=== PATIENT | female | born 1970 | race Caucasian/White ===

== ENCOUNTER 2020-03-17 09:25 | Emergency (ER) | payer BC, SELFPAY ==
[2020-03-17] MEDS ORDERED: BUPIVACAINE 0.5% PF 10 ML VIAL ONE (09:58)
[2020-03-17] MEDS ORDERED: LIDOCAINE 1% MPF 5 ML VIAL ONE (09:58)
[2020-03-17] MEDS ORDERED: TETANUS & DIPHTHERIA TOX,ADULT 0.5 ML VIAL ONE (09:59)
--- NOTE | 2020-03-17 10:47 | RAD REPORT ---
EXAM DESCRIPTION: RAD -Hand Left 3 View - 03/17/2020 10:31 am CLINICAL HISTORY: Left hand pain status post injury FINDINGS: No fracture or dislocation is seen. A radiopaque foreign body is not seen
--- NOTE | 2020-03-17 11:03 | ER ---
Nurse's Notes [facility] Name: Saida Hilario Age: 49 yrs Sex: Female : 1970 Arrival Date: 03/17/2020 Time: 09:25 Bed 15 Private MD: Diagnosis: Laceration with foreign body of left little finger without damage to nail Presentation: 03/17 09:28 Chief complaint: Patient states: was trying to dig wax out of scentsy warmer, was using iw a butter knife, it slipped and the warmer broke and cut the inside of her left pinky, think s there is a piece of glass stuck inside. Coronavirus screen: At this time, the client does not indicate any symptoms associated with coronavirus-19. Ebola Screen: Patient negative for fever greater than or equal to 101.5 degrees Fahrenheit, and additional compatible Ebola Virus Disease symptoms Patient denies exposure to infectious person. Patient denies travel to an Ebola-affected area in the 21 days before illness onset. No symptoms or risks identified at this time. Complicating Factors: Glass or an other foreign body is present in the wound. Initial Sepsis Screen: Does the patient meet any 2 criteria? No. Patient's initial sepsis screen is negative. Does the patient have a suspected source of infection? No. Patient's initial sepsis screen is negative. Risk Assessment: Do you want to hurt yourself or someone else? Patient reports no desire to harm self or others. Onset of symptoms was March 17, 2020. 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 - Social history:: Smoking status: Patient reports the use of cigarette tobacco products, denies chronic smoking, but will smoke occasionally. Screenin:36 Abuse screen: Denies threats or abuse. Denies injuries from another. Abuse screen: iw Denies threats or abuse. Nutritional screening: No deficits noted. Tuberculosis screening: No symptoms or risk factors identified. Fall Risk None identified. Assessment: 09:35 General: Appears in no apparent distress. Behavior is calm, cooperative. Pain: iw Complains of pain in palmar aspect of proximal phalanx of left little finger. Neuro: Level of Consciousness is awake, alert, obeys commands, Oriented to person, place, time, situation. Cardiovascular: Patient's skin is warm and dry. Respiratory: Respiratory effort is even, unlabored, Respiratory pattern is regular, symmetrical. Derm: Skin is healthy with good turgor. Musculoskeletal: Range of motion: intact in all extremities. Injury Description: Laceration sustained to palmar aspect of proximal phalanx of left little finger is 0.5 to 2.5 cm long. 10:30 Reassessment: Patient appears in no apparent distress at this time. No changes from tw2 previously documented assessment. Patient and/or family updated on plan of care and expected duration. Pain level reassessed. Patient is alert, oriented x 3, equal unlabored respirations, skin warm/dry/pink. 11:29 Reassessment: Patient appears in no apparent distress at this time. No changes from tw2 previously documented assessment. Patient and/or family updated on plan of care and expected duration. Pain level reassessed. Patient is alert, oriented x 3, equal unlabored respirations, skin warm/dry/pink. Vital Signs: 09:28 BP 128 / 84; Pulse 84; Resp 16; Temp 97.8; Pulse Ox 99% on R/A; Weight 81.65 kg; Height iw 5 ft. 7 in. (170.18 cm); Pain 1/10; 10:29 BP 122 / 81; Pulse 68; Resp 17; Pulse Ox 100% on R/A; tw2 11:29 BP 108 / 52; Pulse 64; Resp 16; Pulse Ox 99% on R/A; tw2 09:28 Body Mass Index 28.19 (81.65 kg, 170.18 cm) iw ED Course: 09:25 Patient arrived in ED. as 09:28 Oscar Abdullahi PA is PHCP. cp 09:28 Marlo Juarez MD is Attending Physician. cp 09:30 Triage completed. iw 09:35 Arm band placed on. iw 09:50 Bed in low position. Call light in reach. Adult w/ patient. tw2 09:51 Turner, Una, RN is Primary Nurse. tw2 10:32 XRAY Hand LEFT 3 View In Process Unspecified. EDMS 11:33 Assist provider with laceration repair on left hand and palmar aspect of proximal tw2 phalanx of left little finger that was 2.5 cm. or less using sutures. Set up tray. Performed by Oscar BADILLO Dressed with Neosporin, non adherent dressing secured with coban. Patient did not have IV access during this emergency room visit. 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 Exp: jd3 07/16/2021. Lot #: [id number]. } Route: IM; Site: left deltoid; 10:25 Follow up: Response: No adverse reaction tw2 Outcome: 11:03 Discharge ordered by . ebenezer 11:33 Discharged to home ambulatory, with family. tw2 11:33 Condition: improved 11:33 Condition: stable 11:33 Discharge instructions given to patient, family, Instructed on discharge instructions, follow up and referral plans. wound care, Demonstrated understanding of instructions, follow-up care, wound care. 11:34 Patient left the ED. tw2 Signatures: Dispatcher [employer] EDMS Kaylyn Ha Irene, RN RN iw Page, Corey, PA PA cp Wise, Tara, RN RN tw2 Elias Gonzales RN RN jd3 Corrections: (The following items were deleted from the chart) 09:35 09:28 BP 128 / 84; Resp 16bpm; Pulse Ox 99% RA; Temp 97.8F; 81.65 kg; Height 5 ft. 7 iw in.; BMI: 28.1; Pain 1/10; iw
--- NOTE | 2020-03-17 11:03 | EDPHYS ---
Physician Documentation [facility] Name: Saida Hilario Age: 49 yrs Sex: Female : 1970 Arrival Date: 03/17/2020 Time: 09:25 Bed 15 Private MD: ED Physician Marlo Juarez HPI: 03/17 10:00 This 49 yrs old Female presents to ER via Ambulatory with complaints of cp Laceration - finger. 10:00 The patient or guardian reports a laceration. The complaints affect the palmar aspect cp of proximal phalanx of left little finger. Context: The problem was sustained at home, resulted from shattered ceramic glass. Onset: The symptoms/episode began/occurred just prior to arrival. Associated signs and symptoms: Pertinent negatives: cyanosis distally, decreased sensation distally. 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 - Social history:: Smoking status: Patient reports the use of cigarette tobacco products, denies chronic smoking, but will smoke occasionally. ROS: 10:05 Skin: Positive for laceration(s), of the palmar aspect of proximal phalanx of left cp little finger. 10:05 Neuro: Negative for numbness, tingling, weakness. cp 10:05 All other systems are negative. Exam: 10:10 Constitutional: The patient appears in no acute distress, alert, awake, well developed, cp well nourished. 10:10 Musculoskeletal/extremity: ROM: full active range of motion, in the left small finger, cp Perfusion: the extremity is normally perfused throughout, Sensation intact. 10:10 Skin: injury, laceration(s), the wound is approximately 2 cm(s), of the palmar aspect of proximal phalanx of left little finger, that can be described as foreign body containing, linear, with mild bleeding. Vital Signs: 09:28 BP 128 / 84; Pulse 84; Resp 16; Temp 97.8; Pulse Ox 99% on R/A; Weight 81.65 kg; Height iw 5 ft. 7 in. (170.18 cm); Pain 04/05; 10:29 BP 122 / 81; Pulse 68; Resp 17; Pulse Ox 100% on R/A; tw2 11:29 BP 108 / 52; Pulse 64; Resp 16; Pulse Ox 99% on R/A; tw2 09:28 Body Mass Index 28.19 (81.65 kg, 170.18 cm) iw Procedures: 10:16 Foreign Body Removal: a fragment of glass, from the palmar aspect of proximal phalanx cp of left little finger, by tweezers, The patient tolerated the removal well. Laceration: 11:00 Wound Repair of 2cm ( 0.8in ) subcutaneous laceration to palmar aspect of proximal cp phalanx of left little finger. Linear shaped.. Distal neuro/vascular/tendon intact. Anesthesia: Wound infiltrated with 5 mls of Lido/Marcaine. Wound prep: Moderate cleansing by me, Wound irrigation by me. Skin closed with 4 5-0 Prolene using simple sutures and sterile technique. Dressed with Bacitracin, 4x4's. Patient tolerated well. MDM: 09:36 Patient medically screened. cp 10:35 Test interpretation: by ED physician or midlevel provider: xrays of left hand negative cp for fracture and/or foreign body. 11:02 Data reviewed: vital signs, nurses notes, radiologic studies, plain films. cp 11:02 Response to treatment: the patient's symptoms have markedly improved after treatment, cp and as a result, I will discharge patient. 03/17 09:59 Order name: XRAY Hand LEFT 3 View; Complete Time: 10:59 cp 03/17 10:59 Interpretation: Report reviewed. 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 Exp: jd3 07/16/2021. Lot #: [id number]. } Route: IM; Site: left deltoid; 10:25 Follow up: Response: No adverse reaction tw2 Disposition: 11:35 Chart complete. cp 03/18 06:25 Co-signature as Attending Physician, Marlo Juarez MD I agree with the assessment and kdr plan of care. Disposition: 03/17/20 11:03 Discharged to Home. Impression: Laceration with foreign body of left little finger without damage to nail. - Condition is Stable. - Discharge Instructions: Laceration Care, Adult. - Medication Reconciliation Form, Thank You Letter, Antibiotic Education, Prescription Opioid Use form. - Follow up: Private Physician; When: 10 - 14 days; Reason: Staple/Suture removal. - Problem is new. - Symptoms have improved. Signatures: Dispatcher [employer] EDMS Marlo Juarez MD MD [facility] Dilcia Calle RN RN iw Oscar Abdullahi PA PA cp Una Turner RN RN tw2 Elias Gonzales RN RN jd3 Corrections: (The following items were deleted from the chart) 03/17 11:34 11:03 03/17/2020 11:03 Discharged to Home. Impression: Laceration with foreign body of tw2 left little finger without damage to nail. Condition is Stable. Forms are Medication Reconciliation Form, Thank You Letter, Antibiotic Education, Prescription Opioid Use. Follow up: Private Physician; When: 10 - 14 days; Reason: Staple/Suture removal. Problem is new. Symptoms have improved. cp
[2020-03-18 07:15] VITALS: TEMP 97.8
[2020-03-18 07:17] VITALS: BP 108/52; O2SAT 99
== END 2020-03-17 11:34 | disposition home or self-care (01) ==
LOC: ER 09:25
PROC: 0JQK0ZZ Repair Left Hand Subcutaneous Tissue and Fascia, Open Approach (ICD-10-PCS; principal; 2020-03-17)
DX: S61.217A Laceration without foreign body of left little finger without damage to nail, initial encounter (principal); W26.8XXA Contact with other sharp object(s), not elsewhere classified, initial encounter; Y93.89 Activity, other specified; Y92.009 Unspecified place in unspecified non-institutional (private) residence as the place of occurrence of the external cause; E03.9 Hypothyroidism, unspecified; F17.210 Nicotine dependence, cigarettes, uncomplicated; Z23 Encounter for immunization
CPT/HCPCS: 90471; 90714; 99283

== ENCOUNTER 2020-11-13 12:08 | Emergency (ER) | payer SELFPAY ==
--- OUTSIDE RECORDS SUMMARY | 2020-11-13 12:11 | XMS REPORT | Clinical Summary ---
:1970 Author Organization [facility] MD [facility] Center Address [address] [place] [address] Care Team Providers Name Role Phone Giselle Martel MD Primary Care Provider Becky, "Sumaya" Unavailable Allergies No Known Active Allergies Medications Medication Sig Dispensed Refills Start Date End Date Status levothyroxine Take 1 tablet by 0 05/05/2018 Active (SYNTHROID, LEVOTHROID) mouth daily. 125 mcg tablet ibuprofen Take 1 tablet 30 tablet 1 10/04/2018 Activ e (ADVIL,MOTRIN) 600 mg (600 mg) by mouth tabletIndications: every 6 (six) Excessive and frequent hours as needed menstruation with for moderate irregular cycle pain. 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 05/08/2018 Irregular period 05/08/2018 Excessive and frequent menstruation with irregular cyc le 05/08/2018 Pelvic pain 05/08/2018 Encounters Date Type Specialty Care Team Description 06/18/2020 Orders Only Infectious Diseases Elia Mario MD S ARS-CoV-2 vaccination after 11/14/2019 Surgical History Surgery Date Site/Laterality Comments EXCISION OF CERVIX USING LOOP 01/25/2017 - 02/23/2017 ELECTRODE TUBAL LIGATION 03/27/1993 - 03/26/1994 OVARIAN CYST REMOVAL 03/27/1988 - 03/26/1989 Right CERVICAL CONIZATION W/ LASER W OR WO 06/14/2018 FULGURATION W OR WO D&C DILATION AND CURETTAGE OF UTERUS 06/14/2018 Medical History Medical History Date Comments Polycystic ovarian syndrome 1988 Had surgery in 1989 Disorder of thyroid gland found when I w as 12 yrs old Family History Medical History Relation Name Comments -Thyroid cancer Maternal Aunt Makayla Moreno -Other cancer Maternal Grandfather Ebonie Mary from b one cancer -Other cancer Maternal Uncle Latrice Mary from biledu ct cancer -Melanoma Mother Edith Hilario Relation Name Status Comments Maternal Aunt Makayla Moreno Maternal Grandfather Ebonie Mary Maternal Uncle Latrice Mary Mother Edith Hilario Social History Tobacco Use Types Packs/Day Years Used Date Current Every Day Smoker Cigarettes 0.25 10 Smokeless Tobacco: Never Used Tobacco Cessation: Ready to Quit: Yes Alcohol Use Standard Drinks/Week Comments No 0 (1 standard drink = 0.6 oz pure alcoho l) Sex Assigned at Date Recorded Not on file Obstetrics History Grav Para Term Pre Abrt (TAB) (SAB) (Ect) Mult Lvng Comments 2 2 3 3 vaginal deli veries Date Outcome GA Total Labor/2nd/3rd Weight Sex Delivery Anes PTL Stefani A 1 A5 Name Clin Labor Para Para Last Filed Vital Signs Not on file Plan of Treatment Not on file Results Not on fileafter 11/14/2019 Insurance Payer Benefit Plan / Subscriber ID Effective Dates Phone Addre ss Type Group BLUE [place] POS [id number] 2017-Present PPO SHIELD
--- OUTSIDE RECORDS SUMMARY | 2020-11-13 12:11 | XMS REPORT | Continuity of Care Document ---
:1970 Author Organization [facility] t Address [address] [place] [address] Care Team Providers Name Role Phone Jodi Martel MD. Primary Care Physician Mary Kay Ortiz Attending Clinician [phone] Fabiano GONZALEZ Attending Clinician Payers Payer Name Policy Type Policy Number Effective Date Expiration Date S carlos BLUE CROSS BLUE [id number] 2017 MD Krish sepulveda [place] PPO 00:00:00 [id number] 1/2018-PresentPPO Problems Condition Condition Condition Status Onset Resolution Last Treating Co mments Source Name Details Category Date Date Treatment Clinician Date Simple Simple Disease Active endometria endometria 3-20 An derso l l 00:00: n hyperplasi hyperplasi 00 a without a without atypia atypia Tobacco Tobacco Disease Active dependence dependence 2-14 An derso , , 00:00: n continuous continuous 00 Abnormal Abnormal Disease Active findings findings 2-13 Tj o on on 00:00: n diagnostic diagnostic 00 imaging of imaging of breast breast High grade High grade Disease Active 2019- M D squamous squamous 2-12 Tj o intraepith intraepith 00:00: n elial elial 00 lesion on lesion on cytologic cytologic smear of smear of cervix cervix (HGSIL) (HGSIL) Cervicovag Cervicovag Disease Active 2019-0 M D inal inal 2-12 Anderso cytology: cytology: 00:00: n Low grade Low grade 00 squamous squamous intraepith intraepith elial elial lesion lesion HPV - HPV - Disease Active Human Human 05-08 And papillomav papillomav 00:00: n irus test irus test 00 positive positive Irregular Irregular Disease Active period period 05-08 Anders 00:00: n 00 Excessive Excessive Disease Active and and 05-08 Anderso frequent frequent 00:00: n menstruati menstruati 00 on with on with irregular irregular cycle cycle Pelvic Pelvic Disease Active pain pain 05-08 Ando 00:00: n 00 Allergies, Adverse Reactions, Alerts This patient has no known allergies or adverse reactions. Family History Family Member Diagnosis Comments Start Date Stop Date Source Maternal grandfather -Other cancer Seth Pagan Maternal uncle -Other cancer MD Krish sepulveda Natural mother -Melanoma MD Tomasa keyes Maternal aunt -Thyroid cancer Social History Social Habit Start Date Stop Date Quantity Comments Source History of tobacco Cigarette Smoker MD Pagan use Cigarette 2018-10-03 2018-10-03 MD Pagan pack-years 00:00:00 00:00:00 Tobacco use and 2018-10-03 2018-10-03 Never used MD Spencer on exposure 00:00:00 00:00:00 Alcohol intake 2018-10-03 2018-10-03 Current MD Tomasa keyes 00:00:00 00:00:00 non-drinker of alcohol (finding) Cigarettes smoked 2018-10-03 2018-10-03 MD Krish sepulveda current (pack per 00:00:00 00:00:00 day) - Reported Sex Ass[birth year] At [birth year] MD Spencer on 00:00:00 00:00:00 Smoking Status Start Date Stop Date Source Current every day smoker 2018-10-03 00:00:00 MD Pagan Medications Ordered Filled Start Stop Current Ordering Indication Dosage Frequency Signature Comments Components Source Medication Medication Date Date Medication? Clinician (SIG) Name Name ibuprofen Yes Excessive 600mg Take 1 (ADVIL,MOTR 7-11 and tablet Tj o IN) 600 mg 00:00: frequent (600 mg) n tablet 00 menstruatio by mouth n with every 6 irregular (six) cycle hours as needed for moderate pain. levothyroxi Yes 1{tbl} Take 1 MD doyle 2-09 tablet by Tomasa (SYNTHROID, 00:00: mouth n LEVOTHROID) 00 daily. 125 mcg tablet Procedures This patient has no known procedures. Encounters Start End Encounter Admission Attending Care Care Encounter Source Date/Time Date/Time Type Type Clinicians Facility Department ID 2020-08-12 2020-08-12 Outpatient Martha Ortiz [facility] [id number] 00:00:00 00:00:00 Mary Kay [id number] 2018-10-04 2018-10-04 Outpatient [id number] [facility] 13:40:00 13:40:00 Results This patient has no known results.
[2020-11-13] MEDS ORDERED: IBUPROFEN 400 MG TAB ONE (13:49)
--- NOTE | 2020-11-13 13:59 | RAD REPORT ---
EXAM DESCRIPTION: RAD - Foot Right 3 View - 11/13/2020 1:52 pm CLINICAL HISTORY: Right foot pain status post injury FINDINGS: No fracture or dislocation is seen
--- NOTE | 2020-11-13 14:13 | ER ---
Nurse's Notes [facility] Name: Saida Hilario Age: 49 yrs Sex: Female : 1970 Arrival Date: 11/13/2020 Time: 12:11 Bed Waiting Private MD: Martha Cohen Diagnosis: Contusion of right foot Presentation: 11/13 13:28 Chief complaint: Patient states: Dropped an ice chest on right foot 1 week ago, pain is jl7 not getting any better. Coronavirus screen: Client denies travel out of the [place] in the last 14 days. At this time, the client does not indicate any symptoms associated with coronavirus-19. Ebola Screen: No symptoms or risks identified at this time. Initial Sepsis Screen: Does the patient meet any 2 criteria? No. Patient's initial sepsis screen is negative. Does the patient have a suspected source of infection? No. Patient's initial sepsis screen is negative. Risk Assessment: Do you want to hurt yourself or someone else? Patient reports no desire to harm self or others. Onset of symptoms was November 05, 2020. 13:28 Method Of Arrival: Ambulatory jl7 13:28 Acuity: DAVIS 4 jl7 Triage Assessment: 13:30 General: Appears in no apparent distress. uncomfortable, Behavior is calm, cooperative, jl7 appropriate for age. Pain: Complains of pain in right foot Pain currently is 7 out of 10 on a pain scale. Neuro: Level of Consciousness is awake, alert, obeys commands, Oriented to person, place, time, situation. Cardiovascular: Patient's skin is warm and dry. Respiratory: Airway is patent Respiratory effort is even, unlabored, Respiratory pattern is regular, symmetrical. Derm: Skin is pink, warm \T\ dry. Bruising that is dark purple, green, on right foot. Musculoskeletal: Swelling present in right foot. 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 - Social history:: Smoking status: Patient denies any tobacco usage or history of. Screenin:20 Abuse screen: Denies threats or abuse. Denies injuries from another. Nutritional jl7 screening: No deficits noted. Tuberculosis screening: No symptoms or risk factors identified. Fall Risk None identified. Assessment: 13:20 Reassessment: JENNA Sanchez in triage assessing pt. jl7 Vital Signs: 13:28 BP 136 / 93; Pulse 71; Resp 17; Temp 97.8; Pulse Ox 100% ; Weight 84.37 kg; Height 5 jl7 ft. 7 in. (170.18 cm); Pain 7/10; 13:28 Body Mass Index 29.13 (84.37 kg, 170.18 cm) jl7 ED Course: 12:11 Patient arrived in ED. am2 12:11 Martha Cohen is Private Physician. am2 13:24 Laura Bueno FNP-C is [facility]. kb 13:24 Marlo Juarez MD is Attending Physician. kb 13:30 Triage completed. jl7 13:30 Arm band placed on right wrist. Patient placed in waiting room, Patient notified of jl7 wait time. 13:32 Patient has correct armband on for positive identification. jl7 13:52 Foot Right 3 View XRAY In Process Unspecified. EDMS 14:12 Shannon Morales RN is Primary Nurse. jl7 14:33 No provider procedures requiring assistance completed. Patient did not have IV access jl7 during this emergency room visit. Administered Medications: 13:30 Drug: Ibuprofen 800 mg Route: PO; jl7 Outcome: 14:08 Discharge ordered by . kb 14:33 Discharged to home ambulatory. jl7 14:33 Condition: stable 14:33 Discharge instructions given to patient, Instructed on discharge instructions, follow up and referral plans. Demonstrated understanding of instructions, follow-up care. 14:33 Patient left the ED. jl7 Signatures: Dispatcher [employer] EDMS Laura Bueno FNP-C FNP-Ckb Leal, Jahala RN RN jl7 Norma Bustamante am2
--- NOTE | 2020-11-13 14:13 | EDPHYS ---
Physician Documentation [facility] Name: Saida Hilario Age: 49 yrs Sex: Female : 1970 Arrival Date: 11/13/2020 Time: 12:11 Bed Waiting Private MD: Martha Cohen ED Physician Marlo Juarez HPI: 11/13 16:58 This 49 yrs old Female presents to ER via Ambulatory with complaints of Foot kb Pain - right. 16:56 The complaints affect the. The patient has not experienced similar symptoms in the kb past. The patient has not recently seen a physician. Patient reports she dropped denies chest on her right foot last week. Reports bruising, swelling to right foot. States symptoms have gotten better but still ongoing.. 16:58 Severity of symptoms: At their worst the symptoms were moderate, in the emergency kb department the symptoms are unchanged. 16:59 The patient presents with a contusion, an injury, pain, swelling, tenderness. The kb complaints affect the right foot. Context: The problem was sustained outdoors, resulted from a heavy object falling, the patient can fully bear weight, the patient is able to ambulate. Onset: The symptoms/episode began/occurred last week. Modifying factors: The symptoms are alleviated by nothing, the symptoms are aggravated by weight bearing, movement. Associated signs and symptoms: Pertinent positives: swelling. 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 - Social history:: Smoking status: Patient denies any tobacco usage or history of. ROS: 16:57 Constitutional: Negative for fever, chills, and weight loss. kb 16:57 MS/extremity: Positive for contusion, ecchymosis, pain, swelling, tenderness, of the right foot. 16:57 All other systems are negative. Exam: 16:56 Constitutional: This is a well developed, well nourished patient who is awake, alert, kb and in no acute distress. Head/Face: Normocephalic, atraumatic. ENT: Moist Mucous membranes Cardiovascular: Regular rate and rhythm with a normal S1 and S2. No gallops, murmurs, or rubs. No pulse deficits. Respiratory: Respirations even and unlabored. No increased work of breathing, no retractions or nasal flaring. Neuro: Awake and alert, GCS 15, oriented to person, place, time, and situation. Moves all extremities. Normal gait. Psych: Awake, alert, with orientation to person, place and time. Behavior, mood, and affect are within normal limits. 16:56 Musculoskeletal/extremity: Extremities: grossly normal except: noted in the right foot: ecchymosis, pain, swelling, tenderness, ROM: intact in all extremities, Circulation is intact in all extremities. Sensation intact. Weight bearing: able to fully bear weight. 16:56 Skin: injury, contusion(s), that are superficial, of the right foot. Vital Signs: 13:28 BP 136 / 93; Pulse 71; Resp 17; Temp 97.8; Pulse Ox 100% ; Weight 84.37 kg; Height 5 jl7 ft. 7 in. (170.18 cm); Pain 7/10; 13:28 Body Mass Index 29.13 (84.37 kg, 170.18 cm) jl7 MDM: 13:24 Patient medically screened. kb 16:55 Data reviewed: vital signs, nurses notes. Data interpreted: Pulse oximetry: on room air kb is 100 %. Interpretation: normal. Counseling: I had a detailed discussion with the patient and/or guardian regarding: the historical points, exam findings, and any diagnostic results supporting the discharge/admit diagnosis, radiology results, the need for outpatient follow up, a family practitioner, to return to the emergency department if symptoms worsen or persist or if there are any questions or concerns that arise at home. 11/13 13:25 Order name: Foot Right 3 View XRAY; Complete Time: 14:00 kb Administered Medications: 13:30 Drug: Ibuprofen 800 mg Route: PO; jl7 Disposition: 19:29 Co-signature as Attending Physician, Marlo Juarez MD I agree with the assessment and kdr plan of care. Disposition Summary: 11/13/20 14:08 Discharge Ordered Location: Home Condition: Stable kb Diagnosis - Contusion of right foot kb Followup: kb - With: Emergency Department - When: As needed - Reason: Worsening of condition Followup: kb - With: Private Physician - When: 2 - 3 days - Reason: Recheck today's complaints, Continuance of care, Re-evaluation by your physician Discharge Instructions: - Discharge Summary Sheet kb - Foot Contusion, [id number] kb Forms: - Medication Reconciliation Form kb - Thank You Letter kb - Antibiotic Education kb - Prescription Opioid Use kb Signatures: Dispatcher [employer] EDMS Laura Bueno, VIJI-C VIJI-Marlo Maradiaga MD MD kdr Leal, Jahala RN RN jl7
[2020-11-13 17:49] VITALS: BP 136/93; TEMP 97.8; O2SAT 100
== END 2020-11-13 14:33 | disposition home or self-care (01) ==
LOC: ER 12:08
DX: S90.31XA Contusion of right foot, initial encounter (principal); E03.9 Hypothyroidism, unspecified; W22.8XXA Striking against or struck by other objects, initial encounter; Y92.89 Other specified places as the place of occurrence of the external cause
CPT/HCPCS: 99283